=== PATIENT | male | born 1995 | race Caucasian/White ===

== ENCOUNTER 2017-09-06 16:06 | Emergency (ER) | payer BC ==
[~2017-09-06] VITALS: Ht 182.8 cm; Wt 113.4 kg
[~2017-09-06 16:06] MED LIST: CIPRODEX 0.3%-7.5 ML OT; ZITHROMAX Z PA250 MG PO
[2017-09-06] MEDS ORDERED: PROAIR HFA8.5 GM INH (17:32)
[2017-09-06] MEDS ORDERED: VIBRAMYCIN100 MG PO (17:32)
[2017-09-06] MEDS ORDERED: ALLEGRA-D 24 H1 EACH PO (17:35)
[2017-09-06] MEDS ORDERED: FLONASE ALLERG9.9 ML NAS (17:35)
== END 2017-09-06 17:53 | disposition home or self-care (01) ==
LOC: ED 16:06
DX: J01.90 Acute sinusitis, unspecified (principal); Z88.0 Allergy status to penicillin

== ENCOUNTER 2024-01-22 23:12 | Emergency (ER) | payer OTHER ==
[~2024-01-22] VITALS: Ht 182.8 cm; Wt 136.1 kg
[~2024-01-22 23:12] MED LIST changes: +ALLEGRA-D 24 H1 EACH PO; +FLONASE ALLERG9.9 ML NAS; +PROAIR HFA8.5 GM INH; +VIBRAMYCIN100 MG PO
== END 2024-01-23 03:27 | disposition left against medical advice (07) ==
LOC: ED 23:12
DX: H91.92 Unspecified hearing loss, left ear (principal); Z88.0 Allergy status to penicillin; Z53.21 Procedure and treatment not carried out due to patient leaving prior to being seen by health care provider